=== PATIENT | male | born 1975 | race Caucasian/White ===

== ENCOUNTER 2018-07-10 19:55 | Inpatient (IN) | payer SELFPAY, OTHER ==
[2018-07-10 21:55] LABS: ADD MAN DIFF? NO
[2018-07-10 21:57] LABS: BASO # 0.1 x10^3/uL (0.0-0.2); BASO % 1 % (0-3); EOS # 0.5 x10^3/uL (0.0-0.7); EOS % 5 % (0-3); HEMATOCRIT 39.3 % (39.0-53.0); HEMOGLOBIN 13.6 g/dL (13.0-17.5); LYMPH # 1.7 x10^3/uL (1.0-4.8); LYMPH % 16 % (24-48); MEAN CORPUSCULAR HEMOGLOBIN 29 pg (25-35); MEAN CORPUSCULAR HGB CONC 35 g/dL (31-37); MEAN CORPUSCULAR VOLUME 85 fL (79-100); MONO % 9 % (0-9); NEUT # 7.2 x10^3uL (1.8-7.7); NEUT % 69 % (31-73); PLATELET COUNT 220 x10^3/uL (140-400); RED BLOOD COUNT 4.63 x10^6/uL (4.30-5.70); RED CELL DISTRIBUTION WIDTH 13.9 % (11.5-14.5); WHITE BLOOD COUNT 10.4 x10^3/uL (4.0-11.0)
[2018-07-10 21:58] LABS: BILIRUBIN,URINE NEGATIVE (NEG); CLARITY,URINE CLEAR; COLOR,URINE YELLOW; GLUCOSE,URINE NEGATIVE (NEG); NITRITE,URINE NEGATIVE (NEG); PH,URINE 5.5; PROTEIN,URINE 30 mg/dL (NEG-TRACE); UROBILINOGEN,URINE 0.2 mg/dL (0.2 mg/dL)
[2018-07-10 22:04] LABS: ANION GAP 7 (6-14); BACTERIA,URINE 0 /HPF (0-FEW); BLOOD UREA NITROGEN 55 mg/dL (8-26); BUN/CREATININE RATIO 15 (6-20); CALCIUM 8.4 mg/dL (8.5-10.1); CARBON DIOXIDE 27 mmol/L (21-32); CHLORIDE 102 mmol/L (98-107); CREATININE 3.7 mg/dL (0.7-1.3); GFR 17.9; GLUCOSE 105 mg/dL (70-99); POTASSIUM 3.8 mmol/L (3.5-5.1); SODIUM 136 mmol/L (136-145); SQUAMOUS EPITHELIAL CELL,UR OCC /LPF; WBC,URINE 0 /HPF (0-4)
[2018-07-10] MEDS: IV NORMAL SALINE 1000ML BAG 1,000 ML IV (22:07)
[2018-07-10 22:10] LABS: ALBUMIN 3.8 g/dL (3.4-5.0); ALK PHOS 64 U/L (46-116); ALT (SGPT) 23 U/L (16-63); AST (SGOT) 17 U/L (15-37); TOTAL BILIRUBIN 0.3 mg/dL (0.2-1.0); TOTAL PROTEIN 7.7 g/dL (6.4-8.2)
[2018-07-11] MEDS: amLODIPine BESYLATE 10 MG TABLET PO (09:30)
[2018-07-11] MEDS: hydroCHLOROthiazide 25 MG TABLET PO (09:30)
== END 2018-07-11 11:22 | disposition home or self-care (01) | DRG 684 ==
LOC: 6 SOUTH 23:01 → ER 19:55
DX: N17.9 Acute kidney failure, unspecified (principal); N18.4 Chronic kidney disease, stage 4 (severe); I12.9 Hypertensive chronic kidney disease with stage 1 through stage 4 chronic kidney disease, or unspecified chronic kidney disease; Z82.49 Family history of ischemic heart disease and other diseases of the circulatory system; Z91.19 Patient's noncompliance with other medical treatment and regimen
CPT/HCPCS: 36415; 74176; 80053; 81001; 85025; 96360; 96361; 99285; 99285-25; J7030

== ENCOUNTER 2019-01-07 20:12 | Emergency (ER) | payer BC ==
[~2019-01-07] VITALS: Ht 177.8 cm; Wt 94.3 kg
[~2019-01-07 20:12] MED LIST: AMLO10TA8 PO; CLON0.1T PO; HYDR-2145 PO
[2019-01-07 20:20] VITALS: BP 177/81
--- NOTE | 2019-01-07 20:57 | PHYS DOC ---
Past Medical History Past Medical History: Hypertension, Other Additional Past Medical Histor: 40% renal function in my right kidney--Dx in January 2014 Past Surgical History: Other Additional Past Surgical Histo: Skin graft L)hand ("I got ran over.") Alcohol Use: Sober Additional Information: RECOVERING Drug Use: None Social History Narrative: RECOVERING DRUG USE Adult General Chief Complaint Chief Complaint: LACERATION/AVULSION HPI HPI Patient is a 43 year old male who presents with was using a shovel to chip away ice on the sidewalk when the end of the shovel broke and lacerated his left middle anterior finger. Laceration is in a "L" shape. Edges are approximated. There is no foreign body seen. Patient rates his pain a 0 out of 10. Review of Systems Review of Systems Constitutional: Denies fever or chills [] Eyes: Denies change in visual acuity, redness, or eye pain [] HENT: Denies nasal congestion or sore throat [] Respiratory: Denies cough or shortness of breath [] Cardiovascular: No additional information not addressed in HPI [] GI: Denies abdominal pain, nausea, vomiting, bloody stools or diarrhea [] : Denies dysuria or hematuria [] Musculoskeletal: Denies back pain or joint pain [] Integument: Left middle finger laceration. Denies rash or skin lesions [] Neurologic: Denies headache, focal weakness or sensory changes [] Endocrine: Denies polyuria or polydipsia [] All other systems were reviewed and found to be within normal limits, except as documented in this note. Current Medications Current Medications Current Medications Medications (Trade) Dose Ordered Sig/Zulay Start Time Stop Time Status Last Admin Dose Admin Diphtheria/ Tetanus/Acell Pertussis (Boostrix) 0.5 ml ONCE ONCE 01/07/19 21:15 01/07/19 21:16 DC 01/07/19 21:15 0.5 ML Lidocaine/Sodium Bicarbonate (Buffered Lidocaine 1%) 3 ml 1X ONCE 01/07/19 21:30 01/07/19 21:31 DC 01/07/19 21:20 3 ML Allergies Allergies Allergies Coded Allergies Type Severity Reaction Last Updated Verified No Known Drug Allergies 01/26/14 No Physical Exam Physical Exam Constitutional: Well developed, well nourished, no acute distress, non-toxic appearance. [] HENT: Normocephalic, atraumatic, bilateral external ears normal, oropharynx moist, no oral exudates, nose normal. [] Eyes: PERRLA, EOMI, conjunctiva normal, no discharge. [] Neck: Normal range of motion, no tenderness, supple, no stridor. [] Cardiovascular:Heart rate regular rhythm, no murmur [] Lungs & Thorax: Bilateral breath sounds clear to auscultation [] Abdomen: Bowel sounds normal, soft, no tenderness, no masses, no pulsatile masses. [] Skin: Left middle finger anterior laceration. Warm, dry, no erythema, no rash. [ ] Back: No tenderness, no CVA tenderness. [] Extremities: No tenderness, no cyanosis, no clubbing, ROM intact, no edema. [] Neurologic: Alert and oriented X 3, normal motor function, normal sensory function, no focal deficits noted. [] Psychologic: Affect normal, judgement normal, mood normal. [] Current Patient Data Vital Signs Vital Signs Date Time Temp Pulse Resp B/P (MAP) Pulse Ox O2 Delivery O2 Flow Rate FiO2 01/07/19 20:20 99.9 66 14 177/81 (113) 97 Room Air 99.9 EKG EKG [] Radiology/Procedures Radiology/Procedures [] Course & Med Decision Making Course & Med Decision Making Patient is a 43 year old male who presents with was using a shovel to chip away ice on the sidewalk when the end of the shovel broke and lacerated his left middle anterior proximal finger. Laceration is in a "L" shape. Edges are approximated. There is no foreign body seen. Patient rates his pain a 0 out of 10. Patient to receive a Boostrix in the ED because patient cannot remember when the last time he had a tetanus shot. Laceration Repair by me: Anesthesia: 1% lidocaine locally Location: Left middle finger Tendon/Joint/Nerves: No injury Foreign body: None detected after copious irrigation and exploration Technique: 6 Simple Interrupted Sutures Complexity: No subcutaneous sutures/mucosal repair/edge excision Post Closure Length: 3 cm Patient's bleeding was easily controlled in the department and there is no indication of anemia. No evidence of compartment syndrome, neurologic injury, vascular injury, open joint, tendon laceration, or foreign body. Patient is appropriate for outpatient follow up. 48 hour wound check. Scar minimization instructions given. Dragon Disclaimer Dragon Disclaimer This electronic medical record was generated, in whole or in part, using a voice recognition dictation system. Departure Departure Impression: Primary Impression: Laceration Disposition: 01 HOME, SELF-CARE Condition: STABLE Referrals: NO PCP (PCP) Patient Instructions: Laceration Care, Adult Additional Instructions: Return in 7-10 days for suture removal. Keep area covered and clean. Look for signs of infection such as redness, swelling, bruising or having drainage. Take ibuprofen or Tylenol for pain control. YVROSE MARROQUIN DEAN OF EDUCATION Jan 07, 2019 20:57
[2019-01-07] MEDS ORDERED: DIPHTH,PERTUSS(ACELL),TET TOX 0.5 ML DISP.SYRIN. VAX IM ONE (21:15)
[2019-01-07] MEDS ORDERED: LIDOCAINE WITH 8.4% SOD BICARB 3 ML DISP.SYRIN. INJ ONE (21:30)
--- NOTE | 2019-01-11 10:25 | RAD ---
EXAM: Left hand, 3 views. HISTORY: Laceration. COMPARISON: None. FINDINGS: 3 views of the left hand are obtained. There is no fracture, dislocation or subluxation. There is slight deformity of the distal first metacarpal which may be developmental or due to the sequela of a healed fracture. No radiodense foreign body is seen. IMPRESSION: No acute osseous finding. Electronically signed by: Kaley Javier MD (01/11/2019 10:22 AM) [id number]
== END 2019-01-07 22:15 | disposition home or self-care (01) ==
LOC: ER 20:12
DX: S61.213A Laceration without foreign body of left middle finger without damage to nail, initial encounter (principal); I10 Essential (primary) hypertension; W26.8XXA Contact with other sharp object(s), not elsewhere classified, initial encounter; Y93.89 Activity, other specified; Y92.480 Sidewalk as the place of occurrence of the external cause; Y99.8 Other external cause status
CPT/HCPCS: 12002; 73130; 90471; 90715; 99283

== ENCOUNTER 2020-10-11 16:27 | Emergency (ER) | payer BC ==
[~2020-10-11] VITALS: Ht 177.8 cm; Wt 103.0 kg
[~2020-10-11 16:27] MED LIST changes: +AMLO-187 PO; -AMLO10TA8 PO
[2020-10-11 17:06] VITALS: BP 163/93
[2020-10-11] MEDS ORDERED: LIDOCAINE 1% Multi-Dose 20 ML VIAL. INJ ONE (17:15)
--- NOTE | 2020-10-11 17:29 | PHYS DOC ---
Past Medical History Past Medical History: Hypertension, Other Additional Past Medical Histor: 40% renal function in my right kidney--Dx in January 2014 Past Surgical History: Other Additional Past Surgical Histo: Skin graft L)hand ("I got ran over.") Smoking Status: Current Every Day Smoker Alcohol Use: Sober Drug Use: None General Adult EDM: Chief Complaint: LACERATION/AVULSION HPI: HPI: Patient is a 45 year old right-handed male who presents with a right hand laceration. Patient had his 1 more caught between his trailer and the lawnmower. Which caused a pinch of the right hand. Patient sustained a laceration to the webspace between the thumb and second finger. Patient also has a laceration on the dorsum of the middle phalanx on the second finger. Patient denies any focal weakness or numbness. Patient is up-to-date on his tetanus shot. Patient describes mild pain is worse with palpation. Review of Systems: Review of Systems: Constitutional: Denies fever or chills. [] Eyes: Denies change in visual acuity. [] HENT: Denies nasal congestion or sore throat. [] Respiratory: Denies cough or shortness of breath. [] Cardiovascular: Denies chest pain or edema. [] GI: Denies abdominal pain, nausea, vomiting, bloody stools or diarrhea. [] : Denies dysuria. [] Musculoskeletal: Denies back pain or joint pain. [] Integument: Complains of laceration to right hand Neurologic: Denies headache, focal weakness or sensory changes. [] Endocrine: Denies polyuria or polydipsia. [] Lymphatic: Denies swollen glands. [] Psychiatric: Denies depression or anxiety. [] Heart Score: Risk Factors: Risk Factors: DM, Current or recent (<one month) smoker, HTN, HLP, family history of CAD, obesity. Risk Scores: Score 0 - 3: 2.5% MACE over next 6 weeks - Discharge Home Score 4 - 6: 20.3% MACE over next 6 weeks - Admit for Clinical Observation Score 7 - 10: 72.7% MACE over next 6 weeks - Early Invasive Strategies Current Medications: Current Medications Medications (Trade) Dose Ordered Sig/Zulay Start Time Stop Time Status Last Admin Dose Admin Lidocaine HCl (Lidocaine 1% 20ml Vial) 20 ml 1X ONCE 10/11/20 17:15 11/12/20 17:16 Allergies: Allergies: Allergies Coded Allergies Type Severity Reaction Last Updated Verified No Known Drug Allergies 01/26/14 No Physical Exam: PE: Constitutional: Well developed, well nourished, no acute distress, non-toxic appearance. [] HENT: Normocephalic, atraumatic, bilateral external ears normal, no trismus nose normal. [] Eyes: PERRLA, EOMI, conjunctiva normal, no discharge. [] Neck: Normal range of motion, no tenderness, supple, no stridor. [] Cardiovascular:Heart rate regular rhythm, peripheral pulses are intact cap re fills less than 2 seconds Lungs & Thorax: Bilateral breath sounds clear Abdomen: Nontender nondistended Skin: 3 cm laceration to the webspace between the right thumb and second finger on the dorsal side. 0.5 cm laceration with surrounding abrasion on the dorsum of the middle phalanx of the right second finger Back: No tenderness, no CVA tenderness. [] Extremities: Lacerations as described above. Neurovascular intact distally all extremities unremarkable other than left upper extremity fistula Neurologic: Alert and oriented X 3, normal motor function, normal sensory function, no focal deficits noted. [] Two-point discrimination normal Psychologic: Affect normal, judgement normal, mood normal. [] EKG: EKG: [] Radiology/Procedures: Radiology/Procedures: [] Course & Med Decision Making: Course & Med Decision Making Pertinent Labs and Imaging studies reviewed. (See chart for details) [] 45-year-old male presents with right hand and right index finger lacerations. Patient is neurovascular intact with no evidence of foreign body or tendon injury. Lacerations were repaired without any complications. Patient stable for discharge. Dragon Disclaimer: [employer] Disclaimer: This electronic medical record was generated, in whole or in part, using a voice recognition dictation system. Departure Departure Impression: Primary Impression: Laceration of right hand Additional Impression: Laceration of right index finger Disposition: 01 DC HOME SELF CARE/HOMELESS Condition: STABLE Referrals: MALAIKA SIMMS MD (PCP) Follow-up with your primary doctor or here in 12 days for suture removal Patient Instructions: Laceration Care, Adult Additional Instructions: EMERGENCY DEPARTMENT GENERAL DISCHARGE INSTRUCTIONS THANK YOU for coming to [facility] Emergency Department (ED) today and trusting us with your care. We trust that you had a positive experience in our Emergency Department. If you wish to speak to the department Management you can contact the department operations manager at . YOUR FOLLOW UP INSTRUCTIONS ARE FOLLOWS: Do you have a private doctor? If you do not have a private doctor, please ask for a resource list of physicians or clinics that may be able to assist you with follow up care. The Emergency Physician has interpreted your x-rays. The X-ray specialist will also review them. If there is a change in the findings you will be notified in 48 hours when at all possible. A lab test or lab culture may have been done, your results will be reviewed and you will be notified if you need a change in treatment. ADDITIONAL INSTRUCTIONS AND INFORMATION Your care today has been supervised by a physician who is specially trained in emergency care. Many problems require more than one evaluation for a complete diagnosis and treatment. We recommend that you schedule your follow up appointment as recommended to ensure complete treatment of your illness or injury. If you are unable to obtain follow up care and continue to have a problem, or if your condition worsens we recommend that you return to the ED. We are not able to safely determine your condition over the phone nor are we able to give sound medical advice over the phone. For these safety reasons, if you call for medical advice we will ask you to come to the ED for further evaluation If you have any questions regarding these discharge instructions please call the ED at . SAFETY INFORMATION In the interest of safety, wellness, and injury prevention; we encourage you to wear your seatbelt, if you smoke; quit smoking, and we encourage your family to use protective helmet for bicycling and other sporting events that present an increased risk for head injury. IF YOUR SYMPTOMS WORSEN OR NEW SYMPTOMS DEVELOP, OR YOU HAVE CONCERNS ABOUT YOUR CONDITION; OR IF YOUR CONDITION WORSENS WHILE YOU ARE WAITING FOR YOUR FOLLOW UP APPOINTMENT; EITHER CONTACT YOUR PRIMARY CARE DOCTOR, THE PHYSICIAN WHOSE NAME AND NUMBER YOU WERE GIVEN, OR RETURN TO THE ED IMMEDIATELY. Laceration Repair Lac Repair Indication: [Right hand laceration] Procedure: The patient was placed in the appropriate position and anesthesia a round the [right hand laceration] 4 mL of 1% lidocaine the area was then [CLEANSED and copiously irrigated with normal saline]. The laceration was [closed with 5 4.0 Ethilon simple interrupted sutures] The wound area was then dressed Total repaired wound length: [3 CM]. The patient tolerated the procedure [well]. Complications: [No complications]. Laceration Repair Lac Repair Indication: [Right index finger laceration] Procedure: The patient was placed in the appropriate position and anesthesia using a digital block. 3 milliliters of 1% lidocaine were used using a dorsal approach on the right index finger to perform a digital block. Good anesthesia was obtained.. The area was then [cleansed with copious amount of normal saline]. The laceration was [1 4.0 Ethilon simple interrupted suture] The wound area was then dressed Total repaired wound length: [0.5 CM]. The patient tolerated the procedure [well]. Complications: [No COMPLICATIONS]. MARV YEE MD Oct 11, 2020 17:29
== END 2020-10-11 17:39 | disposition home or self-care (01) ==
LOC: ER 16:27
DX: S61.210A Laceration without foreign body of right index finger without damage to nail, initial encounter (principal); I10 Essential (primary) hypertension; F17.200 Nicotine dependence, unspecified, uncomplicated; W23.0XXA Caught, crushed, jammed, or pinched between moving objects, initial encounter; Y93.89 Activity, other specified; Y92.89 Other specified places as the place of occurrence of the external cause; Y99.8 Other external cause status
CPT/HCPCS: 12002; 99282; J3490

== ENCOUNTER 2020-10-21 13:15 | Emergency (ER) | payer BC ==
[~2020-10-21] VITALS: Ht 180.3 cm; Wt 103.6 kg
[2020-10-21 14:00] VITALS: BP 147/77
--- NOTE | 2020-10-21 14:11 | ED.ADGEN ---
Past Medical History Past Medical History: Hypertension, Other Additional Past Medical Histor: 40% renal function in my right kidney--Dx in January 2014 Past Surgical History: Other Additional Past Surgical Histo: Skin graft L)hand ("I got ran over.") Smoking Status: Current Every Day Smoker Alcohol Use: Sober Drug Use: None General Adult EDM: Chief Complaint: SUTURE/STAPLE REMOVAL HPI: HPI: Patient is a 45 year old male who presents to the emergency room with request for suture removal. Patient states he was seen here on October 11 and had 5 sutures placed to his right hand and one suture placed in the volar aspect of his right index finger. He denies any bleeding or drainage from the index finger. Patient states he has had some pus come out of the sutured area on his hand. He denies any redness, warmth, or fever. The patient currently denies any pain. Review of Systems: Review of Systems: Complete ROS is negative unless otherwise noted in HPI. Allergies: Allergies: Allergies Coded Allergies Type Severity Reaction Last Updated Verified No Known Drug Allergies 01/26/14 No Physical Exam: PE: See Above Constitutional: Well developed, well nourished, no acute distress, non-toxic appearance. [] HENT: Normocephalic, atraumatic, bilateral external ears normal, nose normal. [] Eyes: PERRLA, EOMI, conjunctiva normal, no discharge. [] Neck: Normal range of motion, no stridor. [] Cardiovascular:Heart rate regular rhythm Lungs & Thorax: Respirations even and unlabored, no retractions, no respiratory distress Abdomen: soft, no tenderness Skin: Warm, dry, no erythema, no rash; healed laceration noted to the volar aspect of the right second digit between the DIP and the PIP, [address] with moderate crusting, no surrounding erythema, warmth, or drainage; healed laceration noted to the volar aspect of the right hand between the first and second digits, [address] with moderate crusting throughout the wound, minimal erythema, no warmth, no current drainage. [] Extremities: No cyanosis, ROM intact, no edema. [] Neurologic: Alert and oriented X 3, no focal deficits noted. [] Psychologic: Affect normal, judgement normal, mood normal. [] Current Patient Data: Vital Signs: Vital Signs Date Time Temp Pulse Resp B/P (MAP) Pulse Ox O2 Delivery O2 Flow Rate FiO2 10/21/20 14:00 98.2 59 18 147/77 (100) 98 Room Air 98.2 EKG: EKG: [] Heart Score: Risk Factors: Risk Factors: DM, Current or recent (<one month) smoker, HTN, HLP, family history of CAD, obesity. Risk Scores: Score 0 - 3: 2.5% MACE over next 6 weeks - Discharge Home Score 4 - 6: 20.3% MACE over next 6 weeks - Admit for Clinical Observation Score 7 - 10: 72.7% MACE over next 6 weeks - Early Invasive Strategies Radiology/Procedures: Radiology/Procedures: 5 sutures were removed from the hand wound 1 suture was removed from the finger wound. The wounds were well approximated before and after procedure. Patient tolerated the procedure well. There is some crusting about the wounds and no discharge from the wound. [] Course & Med Decision Making: Course & Med Decision Making Pertinent Labs and Imaging studies reviewed. (See chart for details) []I have reviewed the PA/DRAFTER STRUCTURAL's note and Plan of Care. I was available for consultation as needed during the patient's visit in the emergency department. I agree with the clinical impression, plans and disposition. Dragon Disclaimer: Dragon Disclaimer: This electronic medical record was generated, in whole or in part, using a voice recognition dictation system. Departure Departure Impression: Primary Impression: Visit for suture removal Disposition: 01 DC HOME SELF CARE/HOMELESS Condition: STABLE Referrals: MALAIKA SIMMS MD (PCP) Patient Instructions: Suture Removal-Brief Additional Instructions: Keep site clean and dry. Return to the ER if signs of infection develop including: fever, redness, warmth, or drainage. Thank you for choosing [facility] today! LISA MCCOLLUM APRN Oct 21, 2020 14:11 AMRV YEE MD Oct 21, 2020 14:45
== END 2020-10-21 14:25 | disposition home or self-care (01) ==
LOC: ER 13:15
DX: S61.210D Laceration without foreign body of right index finger without damage to nail, subsequent encounter (principal); I10 Essential (primary) hypertension; F17.200 Nicotine dependence, unspecified, uncomplicated; Z98.890 Other specified postprocedural states; W23.0XXD Caught, crushed, jammed, or pinched between moving objects, subsequent encounter
CPT/HCPCS: 99281